=== PATIENT | male | born 1960 | race Caucasian/White ===

== ENCOUNTER → 2018-09-06 | Outpatient (CLI) | payer BC ==
[~2018-09-06] MED LIST: AMLODIPINE BES2.5 MG PO; BP MED; CLONIDINE HCL0.1 MG PO; FISH OIL 1,0001 EAC2; HYDROCHLOROTHIA25 MG; LOSARTAN POTAS100 MG PO; METOPROLOL; POTASSIUM; SIMVASTATIN20 MG PO
--- NOTE | 2018-09-15 00:26 | Polysomnography ---
DATE OF STUDY: POLYSOMNOGRAPHY REPORT HISTORY OF PRESENT ILLNESS: Patient reports snoring and difficulty initiating and maintaining sleep. The patient had some witnessed apnea and some daytime somnolence. INTERPRETATION: A prior study showed evidence of obstructive sleep apnea. The patient returns today for a second night study with CPAP titration. Patient slept for 417 minutes out of 449 minutes. Sleep efficiency was 92.1%. Sleep onset latency was 4 minutes. The latency to REM was 38.5 minutes. The patient spent 122 minutes in REM sleep which was 29.3% of the night. The minimal saturation was 90%. The patient spent 53.1% of the night in the supine position and the remainder of the night in a non-supine position. The [place] sleep score was 12. The sheet ironworker desensitized the patient to CPAP and then initiated CPAP at 4 cm of water pressure. Polysomnography gradually increased the CPAP to 13 cm of water pressure. At 13 cm of water pressure, the patient still had some snoring. Patient was switched to BiPAP and the BiPAP was increased to 16/11. In the setting of 16/11, the nocturnal events and snoring were successfully eliminated. INTERPRETATION: Successful treatment of obstructive sleep apnea with BiPAP. RECOMMENDATIONS 1. BiPAP at 16/11 with a heated humidifier. 2. Avoid alcohol or sedatives prior to retiring at night. 3. Achieve and maintain an ideal body weight. 4. Follow up in 3 months to ensure efficacy and compliance to CPAP. Job#: [id number] KATERYNA NATH
== END ==
LOC: SLEEP 19:24
PROVIDERS: ATTEND Internal Medicine
DX: G47.33 Obstructive sleep apnea (adult) (pediatric) (principal)
CPT/HCPCS: 95811

== ENCOUNTER → 2018-09-30 | Day surgery (SDC) | payer BC ==
[~2018-09-30] MED LIST changes: +MIDAZOLAM HCL 2 MG/2 ML VIAL ONE; +PROPOFOL IV EMULSION 10 MG/ML 20 ML VIAL ONE
[2018-09-30 14:10] VITALS: BP 137/96
== END | disposition home or self-care (01) ==
LOC: OR 11:30
PROVIDERS: ATTEND Internal Medicine Gastroenterology
DX: Z12.11 Encounter for screening for malignant neoplasm of colon (principal); Z71.3 Dietary counseling and surveillance; G47.30 Sleep apnea, unspecified; I10 Essential (primary) hypertension; E66.9 Obesity, unspecified; Z01.810 Encounter for preprocedural cardiovascular examination; Z68.35 Body mass index [BMI] 35.0-35.9, adult
CPT/HCPCS: 45378; 93005; J2250; J2704